=== PATIENT | female | born 1990 | race African-American/Black ===

== ENCOUNTER 2017-02-26 23:45 | Observation (INO) | payer SELFPAY ==
[2016-07-24 23:00] VITALS: BP 107/76
[2017-02-27 00:29] LABS: BILIRUBIN,URINE SMALL (NEG); GLUCOSE,URINE NEGATIVE (NEG); NITRITE,URINE NEGATIVE (NEG); PROTEIN,URINE 30 mg/dL (NEG-TRACE)
[2017-02-27 00:37] LABS: BARBITURATES NEG (NEG); BENZODIAZEPINES NEG (NEG); CANNABINOIDS POS (NEG); COCAINE NEG (NEG); METHADONE NEG (NEG); OPIATES NEG (NEG); PHENCYCLIDINE NEG (NEG)
[2017-02-27 00:40] LABS: ETHANOL, URINE NEG (NEG)
[2017-02-27 00:52] LABS: BACTERIA,URINE MODERATE /HPF (0-FEW); SQUAMOUS EPITHELIAL CELL,UR MANY /LPF; WBC,URINE >40 /HPF (0-4)
[2017-02-27] MEDS ORDERED: IV RINGERS,LACTATED 1000ML 1,000 ML IV SCH ×2 (01:00)
== END 2017-02-27 03:33 | disposition home or self-care (01) ==
LOC: 3 SO LND 23:45
PROVIDERS: ADMIT Specialist; ATTEND Specialist
DX: O26.892 Other specified pregnancy related conditions, second trimester (principal); R10.9 Unspecified abdominal pain; M54.9 Dorsalgia, unspecified; R10.2 Pelvic and perineal pain; Z3A.27 27 weeks gestation of pregnancy
CPT/HCPCS: 81001; 87086; 96360; 96361; G0378; G0379; G0481; J7120